=== PATIENT | male | born 1990 | race American Indian/Alaskan Native ===

== ENCOUNTER 2018-10-06 10:40 | Emergency (ER) | payer OTHER ==
[2018-10-06 11:25] VITALS: BP 148/100
--- NOTE | 2018-10-06 11:28 | Emergency Department Report ---
ED Dysuria HPI - HPI Chief Complaint: Urogenital-Male Stated Complaint: STD SYMPTOMS Time Seen by Provider: 10/06/18 11:28 Duration: 2 Days Location of Discomfort: Suprapubic Severity: Mild Symptoms: Dysuria: Yes, Frequency: No, Suprapubic Pain: No, Flank Pain: No, Fever: No, Hematuria: No, Abdominal Pain: No, Previous UTI's: No Other History: pt here with penile dc. concerned for STI exposure. no testicular pain ED Review of Systems ROS: Stated complaint: STD SYMPTOMS Other details as noted in HPI Comment: All other systems reviewed and negative ED Past Medical Hx - Past Medical History Previous Medical History?: No - Surgical History Past Surgical History?: No - Family History Family history: no significant - Social History Smoking Status: Current Every Day Smoker Substance Use Type: None Dysuria Exam - Exam General: Vital signs noted. No distress. Alert and acting appropriately. Exam: Yes Moist Mucous Membranes, No CVA Tenderness, No Abdominal Tenderness, No Rigidity or Guarding ED Course Vital Signs 10/06/18 11:23 Temperature 98.1 F Pulse Rate 76 Respiratory 18 Rate Blood Pressure 148/100 O2 Sat by Pulse 99 Oximetry ED Medical Decision Making - Medical Decision Making std public health risk empiric treatment vss no testicular pain Labs 10/06/18 Unknown Urine Color Yellow Urine Turbidity Slightly-cloudy Urine pH 6.0 Ur Specific Veteran 1.025 Urine Protein <15 mg/dl Urine Glucose (UA) Neg Urine Ketones Neg Urine Blood Neg Urine Nitrite Neg Urine Bilirubin Neg Urine Urobilinogen < 2.0 Ur Leukocyte Esterase Mod Urine WBC (Auto) 40.0 H Urine RBC (Auto) 5.0 U Epithel Cells (Auto) < 1.0 Urine Mucus 1+ Vital Signs 10/06/18 11:23 Temperature 98.1 F Pulse Rate 76 Respiratory 18 Rate Blood Pressure 148/100 O2 Sat by Pulse 99 Oximetry Critical care attestation.: If time is entered above; I have spent that time in minutes in the direct care of this critically ill patient, excluding procedure time. ED Disposition Clinical Impression: Penile discharge, Exposure to STD Disposition: DC-01 TO HOME OR SELFCARE Is pt being admited?: No Does the pt Need Aspirin: No Condition: Stable Instructions: Safe Sex (ED) Additional Instructions: SAFE SEX Referrals: [facility] [Outside] - 3-5 Days Time of Disposition: 11:40
[2018-10-06] MEDS ORDERED: XYLOCAINE 1% MPF 5 mL INFILTRATI ONE (11:36)
[2018-10-06] MEDS ORDERED: ROCEPHIN IM ONE (11:36)
[2018-10-06] MEDS ORDERED: ZITHROMAX PO ONE (11:36)
[2018-10-06 12:46] LABS: Bilirubin,Urine NEG (Negative); Blood,Urine NEG (Negative); Color,Urine Yellow (Yellow); Mucus,Urine 1+ /HPF; Protein,Urine <15 mg/dL mg/dL (Negative); Urobilinogen,Urine < 2.0 mg/dL (<2.0)
== END 2018-10-06 12:23 | disposition home or self-care (01) ==
LOC: ED 10:40
DX: R30.0 Dysuria (principal); R36.9 Urethral discharge, unspecified; Z20.2 Contact with and (suspected) exposure to infections with a predominantly sexual mode of transmission; F17.200 Nicotine dependence, unspecified, uncomplicated
CPT/HCPCS: 81001; 87591; 96372; 99283; J0696

== ENCOUNTER 2020-04-13 12:06 | Emergency (ER) | payer SELFPAY ==
[2020-04-13] MEDS ORDERED: fentaNYL 100 MCG/2 ML INJ ONE (12:16)
[2020-04-13] MEDS ORDERED: ONDANSETRON 4 MG/2 ML INJ ONE (12:17)
[2020-04-13] MEDS ORDERED: ONDANSETRON 4 MG/2 ML INJ IV ONE (12:18)
[2020-04-13] MEDS ORDERED: fentaNYL 100 MCG/2 ML INJ IV ONE ×2 (12:19→13:40)
[2020-04-13] MEDS ORDERED: propofoL 200 MG/20 ML VIAL IV ONE ×4 (12:50→13:42)
[2020-04-13 12:51] LABS: Basophils # (Auto) 0.1 K/mm3 (0.0-0.1); Basophils % (Auto) 0.5 % (0.0-1.8); Eosinophils # (Auto) 0.1 K/mm3 (0.0-0.4); Eosinophils % (Auto) 0.8 % (0.0-4.3); Hematocrit 41.9 % (35.5-45.6); Hemoglobin 14.1 gm/dl (11.8-15.2); Lymphocytes # (Auto) 2.2 K/mm3 (1.2-5.4); Lymphocytes % (Auto) 21.6 % (13.4-35.0); Mean Corpuscular HGB Conc 34 % (32-34); Mean Corpuscular Volume 92 fl (84-94); Monocytes # (Auto) 0.9 K/mm3 (0.0-0.8); Monocytes % (Auto) 8.7 % (0.0-7.3); Platelet Count 203 K/mm3 (140-440); Red Blood Count 4.58 M/mm3 (3.65-5.03); Red Cell Distribution Width 14.7 % (13.2-15.2)
--- NOTE | 2020-04-13 12:56 | XRay Report ---
BILATERAL HIP 3 VIEW(S) INDICATION / CLINICAL INFORMATION: Right hip pain, trauma COMPARISON: None available. FINDINGS: BONES / JOINT(S): There is a complex right acetabular fracture with displacement of femoral head supe rior medially with respect to the acetabulum. Geographic sclerosis is seen within both femoral heads from osteonecrosis. SOFT TISSUES: No significant abnormality. ADDITIONAL FINDINGS: None. Impression: Complex right acetabular fracture. Pelvic CT may be useful for further characterization a nd preop planning 2. Bilateral femoral head osteonecrosis Signer Name: Adalid Daugherty MD Signed: 04/13/2020 12:52 PM Workstation Name: [id number]
[2020-04-13 13:02] LABS: INR 0.91 (0.87-1.13)
[2020-04-13] MEDS ORDERED: ETOMIDATE 20 MG/10 ML INJ IV ONE ×2 (13:02→13:40)
[2020-04-13 13:03] LABS: Partial Thromboplastin Time 24.6 Sec. (24.2-36.6)
[2020-04-13 13:06] LABS: Alanine Aminotransferase 27 units/L (7-56); Albumin 4.1 g/dL (3.9-5); BUN/Creatinine Ratio 14; Blood Urea Nitrogen 14 mg/dL (9-20); Calcium 9.2 mg/dL (8.4-10.2); Hemolysis Index 6
[2020-04-13 13:07] LABS: Bilirubin,Direct < 0.2 mg/dL (0-0.2)
--- NOTE | 2020-04-13 13:57 | XRay Report ---
RIGHT HIP 2 VIEW(S) INDICATION / CLINICAL INFORMATION: post reduction COMPARISON: Right hip x-ray 12:25 PM same day FINDINGS: BONES / JOINT(S): The femoral head has been reduced and now projects in expected position with respec t to the acetabulum. Nondisplaced right acetabular fracture. SOFT TISSUES: No significant abnormality . ADDITIONAL FINDINGS: None. Signer Name: Adalid Daugherty MD Signed: 04/13/2020 1:53 PM Workstation Name: [id number]
[2020-04-13 14:56] VITALS: BP 135/89
[2020-04-13] MEDS ORDERED: oxyCODONE /ACETAMINOPHEN 5-325MG TAB ONE (15:18)
[2020-04-13] MEDS ORDERED: oxyCODONE /ACETAMINOPHEN 5-325MG TAB PO ONE (15:18)
--- NOTE | 2020-04-13 15:37 | Emergency Department Report ---
ED General Adult HPI - General Chief complaint: Extremity Injury, Lower Stated complaint: RT HIP PAIN Time Seen by Provider: 04/13/20 12:18 Source: patient Mode of arrival: Stretcher Limitations: No Limitations - History of Present Illness Initial comments: This is a 29-year-old male who was involved in a domestic situation involving police response. I am told by the charge nurse that he is now free to leave per the police. According to the triage note he injured "right hip after jumping from [employer] while running from police". The patient was transported on a backboard via EMS they placed him in a cervical collar. He completely denied any injury to his head neck chest or abdomen. He complained of falling on his right buttocks area leading to severe hip pain and an inability to stand. He actually stated that he thought his hip "was dislocated". He provided no previous history of orthopedic or medical problems. He states he is not on m edication. He states he has not eaten today. The patient was quite agitated on arrival. An IV was established. He was given analgesia. His exam was consistent with hip dislocation. I asked respiratory to start to prepare him for a sedation procedure. A portable x-ray did demonstrate a right posterior hip dislocation. -: Sudden Location: right Radiation: extremity (Right hip) Quality: aching Consistency: constant Improves with: none Worsens with: movement Associated Symptoms: denies other symptoms Treatments Prior to Arrival: other (Cervical collar, spine board) - Related Data Previous Rx's Medication Instructions Recorded Last Taken Type HYDROcodone/APAP 7.5-325 [[place] 1 each PO Q6HR PRN #10 tablet 04/13/20 Unknown Rx 7.5/325] Allergies Allergy/AdvReac Type Severity Reaction Status Date / Time No Known Allergies Allergy Unverified 10/06/18 10:42 ED Review of Systems ROS: Stated complaint: RT HIP PAIN Other details as noted in HPI Comment: Unobtainable due to pts medical conditions (However the patient was able to deny any other injury or any other complaint.) ED Past Medical Hx - Past Medical History Previous Medical History?: No - Surgical History Past Surgical History?: No - Social History Smoking Status: Never Smoker Substance Use Type: Alcohol, Marijuana - Medications Home Medications: Home Medications Medication Instructions Recorded Confirmed Last Taken Type HYDROcodone/APAP 7.5-325 [[place] 1 each PO Q6HR PRN #10 tablet 04/13/20 Unknown Rx 7.5/325] ED Physical Exam - General Limitations: Physical Limitation General appearance: in distress - Head Head exam: Present: atraumatic, normocephalic - Eye Eye exam: Present: normal appearance - ENT ENT exam: Present: mucous membranes moist - Neck Neck exam: Present: normal inspection. Absent: tenderness, meningismus - Respiratory Respiratory exam: Present: normal lung sounds bilaterally. Absent: respiratory distress - Cardiovascular Cardiovascular Exam: Present: regular rate, normal rhythm. Absent: systolic murmur, diastolic murmur, rubs, gallop - GI/Abdominal GI/Abdominal exam: Present: soft, normal bowel sounds. Absent: distended, tenderness, guarding, rebound, rigid - Extremities Exam Extremities exam: Present: normal inspection, tenderness, other (Right leg is shortened without gross deformity). Absent: full ROM - Back Exam Back exam: Present: normal inspection. Absent: tenderness, CVA tenderness (R), CVA tenderness (L), muscle spasm, paraspinal tenderness, vertebral tenderness - Neurological Exam Neurological exam: Present: alert, CN II-XII intact. Absent: motor sensory deficit - Psychiatric Psychiatric exam: Present: agitated, anxious - Skin Skin exam: Present: warm, dry, intact, normal color. Absent: rash ED Course Vital Signs 04/13/20 04/13/20 04/13/20 12:24 13:00 13:05 Pulse Rate 91 H Pulse Rate [ 64 Intra-Procedure ] Pulse Rate [ Post-Procedure] Pulse Rate [Pre 89 -Procedure] Respiratory 20 Rate Respiratory 7 L Rate [Intra- Procedure] Respiratory Rate [Post- Procedure] Respiratory 9 L Rate [Pre- Procedure] Blood Pressure 119/96 Blood Pressure 148/101 [Intra- Procedure] Blood Pressure [Post-Procedure ] Blood Pressure 152/93 [Pre-Procedure] Blood Pressure 119/96 [Right] O2 Sat by Pulse 100 Oximetry O2 Sat by Pulse 96 Oximetry [ Intra-Procedure ] O2 Sat by Pulse Oximetry [Post -Procedure] O2 Sat by Pulse 97 Oximetry [Pre- Procedure] 04/13/20 04/13/20 13:10 14:55 Pulse Rate 92 H Pulse Rate [ Intra-Procedure ] Pulse Rate [ 65 Post-Procedure] Pulse Rate [Pre -Procedure] Respiratory 12 Rate Respiratory Rate [Intra- Procedure] Respiratory 9 L Rate [Post- Procedure] Respiratory Rate [Pre- Procedure] Blood Pressure Blood Pressure [Intra- Procedure] Blood Pressure 144/92 [Post-Procedure ] Blood Pressure [Pre-Procedure] Blood Pressure 135/89 [Right] O2 Sat by Pulse 99 Oximetry O2 Sat by Pulse Oximetry [ Intra-Procedure ] O2 Sat by Pulse 100 Oximetry [Post -Procedure] O2 Sat by Pulse Oximetry [Pre- Procedure] - Reevaluation(s) Reevaluation #1: Patient underwent a sedation procedure. He was reexamined. He was fully recovered. He stated that he preferred to stand by the bedside to practice nonweightbearing of his right hip. He was able to utilize crutches well. He is appropriate for outpatient follow-up. 04/13/20 15:38 - Moderate Sedation Indications: fracture/dislocation redu ASA Class: I Mallampati Airway Score: 1 Time of Last PO Intake: 22:00 Fentanyl: IV IV Propofol Dose (mgs): 60 IV Etomidate Dose (mgs): 6 Complications: none Interventions: oxygen applied Patient Tolerated Procedure: well - Orthopedic Joint Reduction Joint #1 Consent Obtained: emergent situation Time Out Performed: Yes Side: right Joint Reduction Location: other (Right hip) Analgesia: moderate sedation Technique Used: traction/counter-traction Post-Reduction Neuro Exam: intact Post-Reduction Vascular Exam: intact Post Reduction X-Ray Obtained: Yes Post Reduction X-Ray Results: reduced Splint Applied: No (Inapplicable) Patient Tolerated Procedure: well ED Medical Decision Making - Lab Data Result diagrams: 04/13/20 12:24 04/13/20 12:24 Laboratory Results - last 24 hr 04/13/20 04/13/20 04/13/20 12:24 12:24 12:24 WBC 10.3 RBC 4.58 Hgb 14.1 Hct 41.9 MCV 92 MCH 31 MCHC 34 RDW 14.7 Plt Count 203 Lymph % (Auto) 21.6 [place] % (Auto) 8.7 H Eos % (Auto) 0.8 Baso % (Auto) 0.5 Lymph # (Auto) 2.2 [place] # (Auto) 0.9 H Eos # (Auto) 0.1 Baso # (Auto) 0.1 Seg Neutrophils % 68.4 Seg Neutrophils # 7.1 PT 12.2 INR 0.91 APTT 24.6 Sodium 142 Potassium 3.5 L Chloride 106.3 Carbon Dioxide 25 Anion Gap 14 BUN 14 Creatinine 1.0 Estimated GFR > 60 BUN/Creatinine Ratio 14 Glucose 97 Calcium 9.2 Total Bilirubin < 0.20 Direct Bilirubin < 0.2 Indirect Bilirubin 0.0 AST 34 ALT 27 Alkaline Phosphatase 65 Total Protein 7.2 Albumin 4.1 Albumin/Globulin Ratio 1.3 Blood Type Antibody Screen 04/13/20 12:30 WBC RBC Hgb Hct MCV MCH MCHC RDW Plt Count Lymph % (Auto) [place] % (Auto) Eos % (Auto) Baso % (Auto) Lymph # (Auto) [place] # (Auto) Eos # (Auto) Baso # (Auto) Seg Neutrophils % Seg Neutrophils # PT INR APTT Sodium Potassium Chloride Carbon Dioxide Anion Gap BUN Creatinine Estimated GFR BUN/Creatinine Ratio Glucose Calcium Total Bilirubin Direct Bilirubin Indirect Bilirubin AST ALT Alkaline Phosphatase Total Protein Albumin Albumin/Globulin Ratio Blood Type A POSITIVE Antibody Screen Negative - Radiology Data Radiology results: image reviewed (Right posterior hip dislocation and relocation) Critical care attestation.: If time is entered above; I have spent that time in minutes in the direct care of this critically ill patient, excluding procedure time. ED Disposition Clinical Impression: Posterior dislocation of right hip Qualifiers: Encounter type: initial encounter Qualified Code(s): S73.014A - Posterior dislocation of right hip, initial encounter Disposition: TO HOME OR SELFCARE Is pt being admited?: No Does the pt Need Aspirin: No Condition: Stable Instructions: Hip Dislocation Additional Instructions: Follow-up with orthopedic physician Dr. Don. Return to the emergency department any acute change or problem. OTC meds plus or minus prescription for pain as needed. Prescriptions: HYDROcodone/APAP 7.5-325 [[place] 7.5/325] 1 each PO Q6HR PRN #10 tablet PRN Reason: Pain Referrals: AMERICA DON MD [Staff Physician] - 3-5 Days Time of Disposition: 15:41
== END 2020-04-13 16:05 | disposition home or self-care (01) ==
LOC: ED 12:06
DX: S73.014A Posterior dislocation of right hip, initial encounter (principal); F12.10 Cannabis abuse, uncomplicated; Z79.899 Other long term (current) drug therapy; W17.89XA Other fall from one level to another, initial encounter; Y93.89 Activity, other specified; Y92.89 Other specified places as the place of occurrence of the external cause; Y99.8 Other external cause status
CPT/HCPCS: 27250; 36415; 73502; 73521; 80048; 80076; 85025; 85610; 85730; 86850; 86900; 86901; 96374; 96375; 96376; 99285; J2405; J2704; J3010

== ENCOUNTER 2020-04-19 17:14 | Emergency (ER) | payer SELFPAY ==
[2020-04-19 17:42] VITALS: BP 171/101
--- NOTE | 2020-04-19 19:13 | Emergency Department Report ---
Chief Complaint: Extremity Injury, Lower Stated Complaint: RT HIP PAIN/LFT HIP PAIN - HPI History of Present Illness: 29-year-old -[place] male presents to the emergency room stating that he has run out of pain medication. Patient was seen here on 04/13/2020 for a right hip dislocation dislocation was reduced. Patient reports he was sent home on [place]. He has an appointment with Dr. Don on . - Exam Vital Signs: Vital Signs 04/19/20 17:41 Temperature 99.5 F Pulse Rate 84 Respiratory 20 Rate Blood Pressure 171/101 O2 Sat by Pulse 100 Oximetry Physical Exam: Alert and oriented x3 no acute distress nontoxic in appearance Patient is ambulating with crutches. MSE screening note: Focused history and physical exam performed. Due to findings the following was ordered: 29-year-old -[place] male presents to the emergency room stating that he has run out of pain medication. Patient was seen here on 04/13/2020 for a right hip dislocation dislocation was reduced. Patient reports he was sent home on [place]. He has an appointment with Dr. Don on . ED Disposition for [facility] Disposition: Z- MED SCREENING EXAM-LEFT Is pt being admited?: No Does the pt Need Aspirin: No Condition: Stable Additional Instructions: You can take ibuprofen 600 to 800 mg every 6-8 hours or naproxen 440 mg twice a day. You can take Tylenol in between every 4-6 hours. Follow-up with your orthopedic provider. Referrals: AMERICA DON MD [Staff Physician] - 3-5 Days ZACHARY CORONADO MD [Staff Physician] - 3-5 Days Forms: Work/School Release Form(ED)
== END 2020-04-19 20:01 | disposition left against medical advice (07) ==
LOC: ED 17:14
DX: M25.551 Pain in right hip (principal); Z53.21 Procedure and treatment not carried out due to patient leaving prior to being seen by health care provider